=== PATIENT | male | born 1990 | race Hispanic/Latino ===

== ENCOUNTER 2018-09-03 17:33 | Inpatient (IN) | payer OTHER ==
--- NOTE | 2018-09-03 18:15 | C.PDOC ---
History Of Present Illness Patient presents to ED c/o sudden onset of left sided chest pain and SOB that began at approx 1pm. Patient denies any falls/injuries, cough, fever, palpitations, abdominal pain, nausea/vomiting, headache/dizziness. He is a nonsmoker and and has no PMHx. Time Seen by Provider: 09/03/18 17:49 Chief Complaint (Nursing): Chest Pain History Per: Patient, Family (girlfriend at bedside ) History/Exam Limitations: no limitations Onset/Duration Of Symptoms: Hrs Current Symptoms Are (Timing): Still Present Severity: Moderate Past Medical History Reviewed: Historical Data, Nursing Documentation, Vital Signs Vital Signs: Last Vital Signs Temp 97.6 F 09/03/18 17:38 Pulse 114 H 09/03/18 17:38 Resp 18 09/03/18 17:38 BP 117/81 09/03/18 17:38 Pulse Ox 100 09/03/18 17:38 - Medical History PMH: No Chronic Diseases Surgical History: No Surg Hx Family History: States: No Known Family Hx - Social History Hx Alcohol Use: No Hx Substance Use: No Review Of Systems Constitutional: Negative for: Fever, Chills Cardiovascular: Positive for: Chest Pain (left sided ). Negative for: Palpitations Respiratory: Positive for: Shortness of Breath. Negative for: Cough Gastrointestinal: Negative for: Nausea, Vomiting, Abdominal Pain, Diarrhea Physical Exam - Physical Exam Appears: Well, Non-toxic, In Acute Distress (in mild to moderate pain ) Skin: Normal Color, Warm, Dry Head: Normacephalic Eye(s): bilateral: Normal Inspection Oral Mucosa: Moist Neck: Trachea Midline, No Trachea Deviated Cardiovascular: Rhythm Regular (tachycardic), No Murmur Respiratory: No Accessory Muscle Use, No Rales, No Rhonchi, Other (no breath sounds on left ) Gastrointestinal/Abdominal: Normal Exam, Bowel Sounds, Soft, No Tenderness Neurological/Psych: Oriented x3 ED Course And Treatment - Laboratory Results Result Diagrams: 09/03/18 18:59 09/03/18 18:59 ECG: Interpreted By Me, Viewed By Me (sinus tachycardia 104 bpm, normal axis, no acute ST/T wave changes) ECG Interpretation: Abnormal O2 Sat by Pulse Oximetry: 100 (RA) Pulse Ox Interpretation: Normal - Radiology CXR: Interpreted by Me, Viewed By Me (large left sided PTX) Progress Note: CXR ordered and reviewed - (+) for large left sided pneumothorax. In Xray, patient became light headed, had syncopal episode and hit right eyebrow/forehead on metal. Approx 1/5 cm laceration right eyebrow. He denies current headache, dizziness, visual hanges, nausea/vomiting. Patient graduated from college 2015, UTD with tetanus vaccination. Laceration - Laceration Repair RIGHT EYEBROW Wound Length (In cm): 1.5 Description Of Wound: Linear Wound Cleansed With: Sterile Saline Anesthesia: Lidocaine 1% (4ML) Wound Examination: Irrigated With Saline, No FB With Wound Exploration Wound Closure: Suture Suture Technique And Material Used: Interrupted, Nylon (4 ETHILON 5.0), Vicryl (1 VICRYL 4.0 SUBCUTANEOUS) Wound Complexity: Intermediate Disposition - Disposition
[2018-09-03] MEDS ORDERED: Sodium Chloride 0.9% 1,000 ML IV ONE (18:35)
--- NOTE | 2018-09-03 19:01 | RAD ---
Date of service: 09/03/2018 PROCEDURE: CHEST RADIOGRAPH, 1 VIEW HISTORY: SOB COMPARISON: None available. FINDINGS: LUNGS: The right lung is well inflated and clear PLEURA: There is a large left pneumothorax with compressive atelectasis of the left lung and shift of mediastinum to the right. No pleural effusions. CARDIOVASCULAR: The heart is normal in size. No aortic atherosclerotic calcifications present. OSSEOUS STRUCTURES: Within normal limits for the patient's age. VISUALIZED UPPER ABDOMEN: Normal. OTHER FINDINGS: None. IMPRESSION: Large left pneumothorax with compressive atelectasis of the left lung and shift of mediastinum to the right. Critical findings were discussed with Dr. Renetta Greene in the ER on 09/03/2018 at 6:55 p.m.
[2018-09-03 19:02] LABS: BASO % 0.5 % (0.0-2.0); EOS % 0.3 % (0.0-4.0); HEMOGLOBIN 14.7 g/dL (12.0-18.0); LYMPH # 1.3 K/uL (1.0-4.3); LYMPH % 13.4 % (20.0-40.0); MEAN CELL VOLUME 87.6 fL (80.0-94.0); MEAN CORPUSCULAR HEMOGLOBIN 28.3 pg (27.0-31.0); MEAN CORPUSCULAR HGB CONC 32.4 g/dL (33.0-37.0); MEAN PLATELET VOLUME 10.7 fL (7.2-11.7); MONO # 0.5 K/uL (0.0-0.8); MONO % 5.2 % (0.0-10.0); NEUT # 7.9 K/uL (1.8-7.0); NEUT % 80.6 % (50.0-75.0); NRBC % 0.1 % (0.0-2.0); RBC 5.2 Mil/uL (4.40-5.90); RED CELL DISTRIBUTION WIDTH 12.2 % (11.5-14.5); WHITE BLOOD COUNT 9.8 K/uL (4.8-10.8)
[2018-09-03] MEDS ORDERED: Lidocaine 1% Inj (20ml) INFIL STA (19:07)
[2018-09-03] MEDS ORDERED: Morphine 4 MG/ML VIAL ONE ×3 (19:09→19:16)
[2018-09-03 19:10] LABS: INR 1.1
[2018-09-03 19:14] LABS: ALB/GLOB RATIO 1.5 (1.0-2.1); ALBUMIN 4.9 g/dL (3.5-5.0); ALT/SGPT 16 U/L (21-72); AST/SGOT 25 U/L (17-59); BLOOD UREA NITROGEN 19 mg/dL (9-20); CALCIUM 9.4 mg/dl (8.6-10.4); GFR NON-AFRICAN AMERICAN > 60
[2018-09-03 19:26] LABS: CK-MB 0.31 ng/mL (0.0-3.38)
[2018-09-03] MEDS ORDERED: Oxycodone/Acetaminophen 5/325 mg Tab PO PRN (19:45)
[2018-09-03] MEDS ORDERED: Lidocaine Hydrochloride 5 ML INJ ONE (19:51)
--- NOTE | 2018-09-03 19:53 | CP.PCM.HP ---
History of Present Illness - History of Present Illness History of Present Illness: General Surgery Dr. Fong 28 y/o M w/ no PMHx presents to the ED c/o CP. Pt states pain began this AM and felt like a pulled muscle. Pain continued to worsen throughout the day, accompanied by SOB. Pt denies similar symptoms/pain in the past. Pt denies recent trauma or illness. Pt denies F/C, cough, N/V. In radiology for CXR pt syncopized, causing R eye brow laceration. CXR revealed complete collapse of L lung, for which surgery is consulted. PMHx: denies Meds: reviewed in chart NKDA PSHx: denies SHx: denies tobacco, EtOH, drug use FHx: noncontributory Present on Admission - Present on Admission Any Indicators Present on Admission: No Review of Systems - Review of Systems All systems: reviewed and no additional remarkable complaints except (see HPI) Past Patient History - Past Social History Smoking Status: Never Smoked - PSYCHIATRIC Hx Substance Use: No - SURGICAL HISTORY Hx Surgeries: No - ANESTHESIA Hx Anesthesia: No Meds Allergies/Adverse Reactions: Allergies Allergy/AdvReac Type Severity Reaction Status Date / Time No Known Allergies Allergy Unverified 09/03/18 17:43 Physical Exam - Constitutional Appears: Non-toxic, No Acute Distress - Head Exam Head Exam: NORMAL INSPECTION - Eye Exam Eye Exam: Normal appearance Additional comments: laceration R eyebrow - ENT Exam ENT Exam: Mucous Membranes Moist - Respiratory Exam Respiratory Exam: Decreased Breath Sounds (L-side), NORMAL BREATHING PATTERN. absent: Accessory Muscle Use, Respiratory Distress - Cardiovascular Exam Cardiovascular Exam: Tachycardia, REGULAR RHYTHM. absent: Bradycardia - GI/Abdominal Exam GI & Abdominal Exam: Soft. absent: Distended, Tenderness - Extremities Exam Extremities exam: Positive for: normal inspection - Neurological Exam Neurological exam: Alert, Oriented x3 - Psychiatric Exam Psychiatric exam: Normal Affect, Normal Mood - Skin Skin Exam: Dry, Intact, Normal Color, Warm Results - Vital Signs Recent Vital Signs: Last Vital Signs Temp 97.6 F 09/03/18 17:38 Pulse 91 H 09/03/18 19:46 Resp 14 09/03/18 19:46 BP 122/68 09/03/18 19:46 Pulse Ox 99 09/03/18 19:46 - Labs Result Diagrams: 09/03/18 18:59 09/03/18 18:59 Labs: Laboratory Results - last 24 hr 09/03/18 09/03/18 09/03/18 18:59 18:59 18:59 WBC 9.8 RBC 5.20 Hgb 14.7 Hct 45.5 MCV 87.6 MCH 28.3 MCHC 32.4 L RDW 12.2 Plt Count 202 MPV 10.7 Neut % (Auto) 80.6 H Lymph % (Auto) 13.4 L [place] % (Auto) 5.2 Eos % (Auto) 0.3 Baso % (Auto) 0.5 Neut # (Auto) 7.9 H Lymph # (Auto) 1.3 [place] # (Auto) 0.5 Eos # (Auto) 0.0 Baso # (Auto) 0.0 PT 12.0 INR 1.1 APTT 29 Sodium 137 Potassium 4.1 Chloride 102 Carbon Dioxide 25 Anion Gap 14 BUN 19 Creatinine 0.8 Est GFR ( Amer) > 60 Est GFR (Non-Af Amer) > 60 Random Glucose 114 H Calcium 9.4 Total Bilirubin 0.6 AST 25 ALT 16 L Alkaline Phosphatase 77 Total Creatine Kinase 85 CK-MB (Mass) 0.31 Troponin I < 0.0120 Total Protein 8.0 Albumin 4.9 Globulin 3.2 Albumin/Globulin Ratio 1.5 - Imaging and Cardiology Chest x-ray Status: Image reviewed by me post CXR Status: Image reviewed by me Assessment & Plan - Assessment and Plan (Free Text) Assessment: 28 y/o M w/ spontaneous PTX s/p bedside pigtail catheter placement Plan: - admit to tele - chest tube to continuous suction - f/u AM CXR - pain management - supplemental O2 PRN - encourage OOB to chair/IS use Pt discussed w/ Dr. Ajit Byers DO PGY3 Procedures Attestation:: I certify that I have explained the specified Operation(s) or Proc edure(s), risks, benefits and reasonable alternatives to the Patient and/or other person responsible. The opportunity was given to ask questions and all questions answered - Chest Tube Chest Tube Location: Mid-Axillary Left Size of Tube (cm): 8 (Fr pigtail) Chest Tube Procedure: Chlorhexidine Tube Sutured to Skin: Yes Sterile Dressing Applied: Yes Anesthesia: Lidocaine 1% Volume Anesthetic (mls): 20 Incision Made With: #11 blade Post Procedure: sutured to skin, sterile dressing applied, air occlusive dressing [place] of Air [place]: Yes Tube Drainage: none Amount of Initial Drainage: 0 Post Procedure CXR?: Yes Patient Tolerated Procedure: Yes Complications: other (10% residular PTX)
--- NOTE | 2018-09-04 08:42 | CP.PCM.PN ---
Subjective - Date & Time of Evaluation Date of Evaluation: 09/04/18 Time of Evaluation: 07:00 - Subjective Subjective: General Surgery Dr. Fong Pt seen and examined @bedside. No acute events overnight. Pt reports resolved CP, SOB. denies F/C. L pigtail on sxn, no leak appreciated Objective - Vital Signs/Intake and Output Vital Signs (last 24 hours): Temp Pulse Resp BP Pulse Ox 98.1 F 55 L 20 107/56 L 96 09/03/18 23:40 09/04/18 04:01 09/03/18 23:40 09/03/18 23:40 09/03/18 23:40 - Medications Medications: Current Medications Acetaminophen (Tylenol 325mg Tab) 650 mg PO Q4 PRN PRN Reason: Pain, Mild (1-3) Oxycodone/Acetaminophen (Percocet 5/325 Mg Tab) 1 tab PO Q4 PRN PRN Reason: Pain, moderate (4-7) Stop: 09/06/18 19:46 Pneumococcal Polyvalent Vaccine (Pneumovax 23 Vaccine) 0.5 ml IM .ONCE ONE Stop: 09/04/18 10:01 - Labs Labs: 09/03/18 18:59 09/03/18 18:59 PT 12.0 SECONDS (9.7-12.2) 09/03/18 18:59 INR 1.1 09/03/18 18:59 APTT 29 SECONDS (21-34) 09/03/18 18:59 - Constitutional Appears: Non-toxic, No Acute Distress - Head Exam Head Exam: NORMAL INSPECTION - Eye Exam Eye Exam: Normal appearance Additional comments: right eyebrow bandage in place (sutured in ED) - ENT Exam ENT Exam: Mucous Membranes Moist - Respiratory Exam Respiratory Exam: NORMAL BREATHING PATTERN. absent: Accessory Muscle Use, Respiratory Distress Additional comments: dressing c/d/i - Cardiovascular Exam Cardiovascular Exam: REGULAR RHYTHM. absent: Bradycardia, Tachycardia - GI/Abdominal Exam GI & Abdominal Exam: Soft. absent: Distended, Tenderness - Extremities Exam Extremities Exam: Normal Inspection - Neurological Exam Neurological Exam: Alert, Awake, Oriented x3 - Psychiatric Exam Psychiatric exam: Normal Affect, Normal Mood - Skin Skin Exam: Dry, Intact, Normal Color, Warm Assessment and Plan - Assessment and Plan (Free Text) Assessment: 28 y/o M w/ L spontaneous PTX s/p L pigtail placement Plan: - found to have air leak on repeat rounds - AM CXR w/ continued residual PTX - plan for CT Chest - may need larger chest tube - maintain pigtail on continuous suction - cont pain management - encourage IS use Pt discussed w/ Dr. Ajit Byers DO PGY3
--- NOTE | 2018-09-04 09:05 | RAD ---
Date of service: 09/04/2018 PROCEDURE: CHEST RADIOGRAPH, 1 VIEW HISTORY: PTX s/p chest tube COMPARISON: Comparison is made with 09/04/2018 at 7:16 FINDINGS: LUNGS: Reticular opacities are noted at the left lower lung. PLEURA: Left-sided chest tube is again seen in place. No significant interval change noted. No evidence of significant residual pneumothorax. No evidence of pleural effusion. CARDIOVASCULAR: No aortic atherosclerotic calcification present. Normal. OSSEOUS STRUCTURES: No significant abnormalities. VISUALIZED UPPER ABDOMEN: Normal. OTHER FINDINGS: None. IMPRESSION: No significant interval changes noted since the prior study. Persistent reticular opacities at the left lower lobe. Left-sided chest tube is seen in place. No evidence of significant residual pneumothorax.
[2018-09-04] MEDS ORDERED: Pneumococcal 23-Valent Vaccine IM ONE (10:00)
--- NOTE | 2018-09-04 10:07 | CT ---
Date of service: 09/04/2018 PROCEDURE: CT Chest without contrast HISTORY: pneumothorax COMPARISON: None available. TECHNIQUE: Contiguous axial images were obtained through the chest without intravenous contrast enhancement. Sagittal and coronal reconstructions were performed. Radiation dose: Total exam DLP = 601.8 mGy-cm. This CT exam was performed using one or more of the following dose reduction techniques: Automated exposure control, adjustment of the mA and/or kV according to patient size, and/or use of iterative reconstruction technique. FINDINGS: LUNGS: Small opacities and reticular opacities noted at the left lung base may represent atelectasis. The possibility of pneumonia is less likely. MEDIASTINUM: Unremarkable thoracic aorta. No aneurysm. Normal sized heart. Main pulmonary artery unremarkable. No vascular congestion. No lymphadenopathy. No aortic atherosclerotic calcification. PLEURA: There is residual approximately 10 percent left-sided pneumothorax noted. There is a drainage catheter/small pigtail chested tube seen extending to the anterior mid portion of the left pleural cavity. Trace residual left pleural effusion. No evidence of significant right pleural effusion. BONES: No fracture. No destructive lesion. UPPER ABDOMEN: Grossly unremarkable. OTHER FINDINGS: None. IMPRESSION: Residual approximately 10 percent left-sided pneumothorax. Pigtail drainage catheter is seen extending to the anterior aspect of the mid left pleural cavity. Foci of airspace consolidation and reticular opacities at the left lower lobe and left lung base may represent atelectasis. The possibility of pneumonia or aspiration is less likely.
--- NOTE | 2018-09-04 14:38 | RAD ---
Date of service: 09/03/2018 HISTORY: PTX s/p pigtail placement COMPARISON: Comparison is made to the previous study dated 09/03/2018 FINDINGS: LUNGS: Interval re-expansion of the left lung since the prior study. PLEURA: Interval insertion of drainage catheter in the left pleural cavity and almost complete resolving of the previously seen left-sided pneumothorax. CARDIOVASCULAR: No aortic atherosclerotic calcification present. Normal cardiac size. No pulmonary vascular congestion. OSSEOUS STRUCTURES: No significant abnormalities. VISUALIZED UPPER ABDOMEN: Normal. OTHER FINDINGS: None. IMPRESSION: Interval insertion of a drainage catheter in the left pleural cavity and re-expansion of the left lung since the prior study. Visual small less than 10 percent left-sided pneumothorax noted.
[2018-09-05] MEDS ORDERED: Pneumococcal 23-Valent Vaccine IM ONE (10:00)
--- NOTE | 2018-09-05 11:20 | CP.PCM.PN ---
Subjective - Date & Time of Evaluation Date of Evaluation: 09/05/18 Time of Evaluation: 11:18 - Subjective Subjective: General surgery - Dr. Fong Pt S&E. NAEO. Pt denies any pain currently. he states he was OOB and ambulating yesterday. He denies any Fevers/chills/sob/chest pain. Chest tube on suction with small airleak. no drainage. Objective - Vital Signs/Intake and Output Vital Signs (last 24 hours): Temp Pulse Resp BP Pulse Ox 98.1 F 91 H 18 116/62 99 09/05/18 09:29 09/05/18 09:45 09/05/18 09:29 09/05/18 09:29 09/05/18 09:29 Intake and Output: 09/05/18 09/05/18 06:59 18:59 Intake Total Output Total Balance - Medications Medications: Current Medications Acetaminophen (Tylenol 325mg Tab) 650 mg PO Q4 PRN PRN Reason: Pain, Mild (1-3) Last Admin: 09/04/18 10:24 Dose: 650 mg Oxycodone/Acetaminophen (Percocet 5/325 Mg Tab) 1 tab PO Q4 PRN PRN Reason: Pain, moderate (4-7) Stop: 09/06/18 19:46 - Labs Labs: 09/03/18 18:59 09/03/18 18:59 PT 12.0 SECONDS (9.7-12.2) 09/03/18 18:59 INR 1.1 09/03/18 18:59 APTT 29 SECONDS (21-34) 09/03/18 18:59 - Constitutional Appears: No Acute Distress - Head Exam Head Exam: ATRAUMATIC, NORMAL INSPECTION, NORMOCEPHALIC - Eye Exam Eye Exam: Normal appearance - Respiratory Exam Respiratory Exam: NORMAL BREATHING PATTERN. absent: Respiratory Distress - Cardiovascular Exam Cardiovascular Exam: REGULAR RHYTHM - Neurological Exam Neurological Exam: Alert, Oriented x3 - Psychiatric Exam Psychiatric exam: Normal Affect, Normal Mood - Skin Skin Exam: Dry, Intact Assessment and Plan - Assessment and Plan (Free Text) Assessment: 28 M w/ L spontaneous PTX s/p L pigtail placement Plan: - CT chest with small residual pneumothorax - Continue chest tube to wall suction - Encourage Incentive Spirometer, OOB and Ambulation - Pain control prn DW Dr Ajit Armenta PGY4
--- NOTE | 2018-09-06 07:39 | CP.PCM.PN ---
Subjective - Date & Time of Evaluation Date of Evaluation: 09/06/18 Time of Evaluation: 08:22 - Subjective Subjective: General Surgery Note for Dr. Fong Patient seen and examind at bedside. No acute event overnight. Patient reports he is asymptomatic. He has no complaints. Chest tube to waterseal. Patient going for CXR PA/Lat this morning. Objective - Vital Signs/Intake and Output Vital Signs (last 24 hours): Temp Pulse Resp BP Pulse Ox 97.4 F L 64 20 110/69 100 09/06/18 04:00 09/06/18 04:00 09/06/18 04:00 09/06/18 04:00 09/06/18 04:00 Intake and Output: 09/06/18 09/06/18 06:59 18:59 Intake Total 0 Output Total 0 Balance 0 - Medications Medications: Current Medications Acetaminophen (Tylenol 325mg Tab) 650 mg PO Q4 PRN PRN Reason: Pain, Mild (1-3) Last Admin: 09/04/18 10:24 Dose: 650 mg Oxycodone/Acetaminophen (Percocet 5/325 Mg Tab) 1 tab PO Q4 PRN PRN Reason: Pain, moderate (4-7) Stop: 09/06/18 19:46 - Labs Labs: 09/03/18 18:59 09/03/18 18:59 PT 12.0 SECONDS (9.7-12.2) 09/03/18 18:59 INR 1.1 09/03/18 18:59 APTT 29 SECONDS (21-34) 09/03/18 18:59 - Constitutional Appears: No Acute Distress - Head Exam Head Exam: ATRAUMATIC, NORMOCEPHALIC - Eye Exam Eye Exam: EOMI, Normal appearance Pupil Exam: PERRL - ENT Exam ENT Exam: Mucous Membranes Moist - Respiratory Exam Respiratory Exam: Clear to Ausculation Bilateral, NORMAL BREATHING PATTERN. absent: Accessory Muscle Use, Respiratory Distress Additional comments: a/p left sided chest pigtail catheter - Cardiovascular Exam Cardiovascular Exam: REGULAR RHYTHM - GI/Abdominal Exam GI & Abdominal Exam: Soft, Normal Bowel Sounds. absent: Tenderness - Extremities Exam Extremities Exam: Normal Capillary Refill. absent: Calf Tenderness - Back Exam Back Exam: absent: CVA tenderness (L), CVA tenderness (R) - Neurological Exam Neurological Exam: Alert, Awake, Oriented x3 - Psychiatric Exam Psychiatric exam: Normal Affect, Normal Mood - Skin Skin Exam: Dry, Intact, Normal Color, Warm Assessment and Plan - Assessment and Plan (Free Text) Assessment: 28 M who presents with Left spontaneous pneumothorax, s/p L sided pigtail catheter Plan: -CXR PA/Lat this AM -May need Chest Tube back to suction due to residual Pnemuothorax on 09/04 CT chest, pending CXR today -Encourage IS -Discussed with Dr. Ajit Zarate PGY2
--- NOTE | 2018-09-06 10:01 | RAD ---
Date of service: 09/06/2018 HISTORY: L pneumo s/p pigtail COMPARISON: 09/04/2018 TECHNIQUE: Chest PA and lateral FINDINGS: LUNGS: Persistent reticular opacities at the left lung base. PLEURA: Left chest tube again noted. Trace left pleural effusion. CARDIOVASCULAR: No aortic atherosclerotic calcification present. Normal cardiac size. OSSEOUS STRUCTURES: No significant abnormalities. VISUALIZED UPPER ABDOMEN: Normal. OTHER FINDINGS: None. IMPRESSION: Trace left pleural effusion which is new. Persistent left-sided chest tube. Persistent reticular opacities at the left lung base.
--- NOTE | 2018-09-06 12:47 | CARD ---
APPROVED REPORT Date of service: 09/03/2018 EKG Measurement Heart [id number] <Conclusion> Sinus tachycardia Right atrial enlargement Septal infarct, age undetermined Abnormal ECG
[2018-09-07 02:48] VITALS: RESP 20
[2018-09-07 07:50] VITALS: TEMP 98.3
--- NOTE | 2018-09-07 13:00 | RAD ---
HISTORY: left pneumo COMPARISON: Chest x-ray performed 09/06/18 TECHNIQUE: Chest PA and lateral FINDINGS: Left-sided chest tube. LUNGS: No focal consolidation. PLEURA: Left upper lobe pneumothorax measures approximately 3.2 cm from pleural edge. Small left pleural effusion. CARDIOVASCULAR: The cardiomediastinal silhouette appears within normal limits of size. No atherosclerotic calcification present. OSSEOUS STRUCTURES: No acute osseous abnormality identified. VISUALIZED UPPER ABDOMEN: Elevation of the right hemidiaphragm. OTHER FINDINGS: None. IMPRESSION: Left-sided chest tube. Left sided pneumothorax measuring approximately 3.2 cm from pleural edge. Small left pleural effusion.
[2018-09-07 16:11] VITALS: BP 99/61; O2SAT 99
[2018-09-07 16:31] VITALS: PULSE 66
--- NOTE | 2018-09-07 17:13 | CP.PCM.DIS ---
Provider - Provider Date of Admission: 09/03/18 19:45 Attending physician: Saray Fong MD Time Spent in preparation of Discharge (in minutes): 20 Diagnosis - Discharge Diagnosis (1) Pneumothorax Status: Acute Hospital Course - Lab Results Lab Results: Most Recent Lab Values WBC 9.8 K/uL (4.8-10.8) 09/03/18 18:59 RBC 5.20 Mil/uL (4.40-5.90) 09/03/18 18:59 Hgb 14.7 g/dL (12.0-18.0) 09/03/18 18:59 Hct 45.5 % (35.0-51.0) 09/03/18 18:59 MCV 87.6 fL (80.0-94.0) 09/03/18 18:59 MCH 28.3 pg (27.0-31.0) 09/03/18 18:59 MCHC 32.4 g/dL (33.0-37.0) L 09/03/18 18:59 RDW 12.2 % (11.5-14.5) 09/03/18 18:59 Plt Count 202 K/uL (130-400) 09/03/18 18:59 MPV 10.7 fL (7.2-11.7) 09/03/18 18:59 Neut % (Auto) 80.6 % (50.0-75.0) H 09/03/18 18:59 Lymph % (Auto) 13.4 % (20.0-40.0) L 09/03/18 18:59 [place] % (Auto) 5.2 % (0.0-10.0) 09/03/18 18:59 Eos % (Auto) 0.3 % (0.0-4.0) 09/03/18 18:59 Baso % (Auto) 0.5 % (0.0-2.0) 09/03/18 18:59 Neut # (Auto) 7.9 K/uL (1.8-7.0) H 09/03/18 18:59 Lymph # (Auto) 1.3 K/uL (1.0-4.3) 09/03/18 18:59 [place] # (Auto) 0.5 K/uL (0.0-0.8) 09/03/18 18:59 Eos # (Auto) 0.0 K/uL (0.0-0.7) 09/03/18 18:59 Baso # (Auto) 0.0 K/uL (0.0-0.2) 09/03/18 18:59 PT 12.0 SECONDS (9.7-12.2) 09/03/18 18:59 INR 1.1 09/03/18 18:59 APTT 29 SECONDS (21-34) 09/03/18 18:59 Sodium 137 mmol/L (132-148) 09/03/18 18:59 Potassium 4.1 mmol/L (3.6-5.2) 09/03/18 18:59 Chloride 102 mmol/L (98-107) 09/03/18 18:59 Carbon Dioxide 25 mmol/L (22-30) 09/03/18 18:59 Anion Gap 14 (10-20) 09/03/18 18:59 BUN 19 mg/dL (9-20) 09/03/18 18:59 Creatinine 0.8 mg/dL (0.8-1.5) 09/03/18 18:59 Est GFR ( Amer) > 60 09/03/18 18:59 Est GFR (Non-Af Amer) > 60 09/03/18 18:59 Random Glucose 114 mg/dL (75-110) H 09/03/18 18:59 Calcium 9.4 mg/dl (8.6-10.4) 09/03/18 18:59 Total Bilirubin 0.6 mg/dL (0.2-1.3) 09/03/18 18:59 AST 25 U/L (17-59) 09/03/18 18:59 ALT 16 U/L (21-72) L 09/03/18 18:59 Alkaline Phosphatase 77 U/L (38-126) 09/03/18 18:59 Total Creatine Kinase 85 U/L (55-170) 09/03/18 18:59 CK-MB (Mass) 0.31 ng/mL (0.0-3.38) 09/03/18 18:59 Troponin I < 0.0120 ng/mL (0.00-0.120) 09/03/18 18:59 Total Protein 8.0 g/dL (6.3-8.3) 09/03/18 18:59 Albumin 4.9 g/dL (3.5-5.0) 09/03/18 18:59 Globulin 3.2 gm/dL (2.2-3.9) 09/03/18 18:59 Albumin/Globulin Ratio 1.5 (1.0-2.1) 09/03/18 18:59 - Hospital Course Hospital Course: 28 yo M admitted to the hospital on 09/03/2018 for spontaneous pneumothorax. Pigtail chest tube was placed and left on suction for several days. A CT scan was done to evaluate for blebs and there was no evidence of bullous disease or weakened lung tissue on CT scan. Pt remained asymptomatic after chest tube placement. On 09/06 chest tube was placed on waterseal. On 09/07 chest X-ray remained stable and chest tube was removed. Post-pull CXR was done 4 hours later and showed improvement in a small residual pneumothorax. Pt was stable for discharge home with instructions to return to ED should any chest pain or Shortness of breath re-occur. Discharge Exam - Head Exam Head Exam: ATRAUMATIC, NORMOCEPHALIC - Respiratory Exam Respiratory Exam: NORMAL BREATHING PATTERN. absent: Respiratory Distress - Cardiovascular Exam Cardiovascular Exam: REGULAR RHYTHM Additional comments: tegaderm dressing in place over prior chest tube site - Neurological Exam Neurological exam: Alert, Oriented x3 - Psychiatric Exam Psychiatric exam: Normal Affect, Normal Mood - Skin Skin Exam: Dry, Intact Discharge Plan - Follow Up Plan Condition: GOOD Disposition: HOME/ ROUTINE Additional Instructions: No strenuous exercise or air travel for 4 weeks. Remove dressing in 24hours and you may shower. If symptoms recurr return to ED for evaluation. You may follow-up with Dr Fong as needed in office. Referrals: Saray Fong MD [Staff Provider] -
--- NOTE | 2018-09-07 17:13 | RAD ---
Date of service: 09/07/2018 HISTORY: Chest tube removal COMPARISON: No prior. FINDINGS: LUNGS: Interval removal left-sided chest tube with persistent small left apical pneumothorax. PLEURA: No significant pleural effusion identified, no pneumothorax apparent. CARDIOVASCULAR: No aortic atherosclerotic calcification present. Normal cardiac size. No pulmonary vascular congestion. OSSEOUS STRUCTURES: No significant abnormalities. VISUALIZED UPPER ABDOMEN: Normal. OTHER FINDINGS: None. IMPRESSION: Interval removal left-sided chest tube with small residual left apical pneumothorax.
== END 2018-09-07 17:43 | disposition home or self-care (01) | DRG 201 ==
LOC: C.ER 17:33 → C.6T 19:45
PROVIDERS: ADMIT Specialist; ATTEND Specialist
PROC: 0W9B30Z Drainage of Left Pleural Cavity with Drainage Device, Percutaneous Approach (ICD-10-PCS; principal; 2018-09-03)
PROC: 0HQ1XZZ Repair Face Skin, External Approach (ICD-10-PCS; 2018-09-03)
DX: J93.83 Other pneumothorax (principal); S01.111A Laceration without foreign body of right eyelid and periocular area, initial encounter; W22.09XA Striking against other stationary object, initial encounter; Y92.238 Other place in hospital as the place of occurrence of the external cause